=== PATIENT | male | born 1990 | race American Indian/Alaskan Native ===

== ENCOUNTER 2025-01-26 02:09 | Emergency (ER) | payer MEDICAID, OTHER ==
[2025-01-26] MEDS: Ketorolac 30 MG/ML SDV IVPUSH ONE (03:08)
[2025-01-26] MEDS: diphenhydrAMINE 50 MG/ML SDV IVPUSH ONE (03:08)
== END 2025-01-26 04:02 | disposition home or self-care (01) ==
LOC: DL.ED 02:09
DX: G43.C0 Periodic headache syndromes in child or adult, not intractable (principal)
CPT/HCPCS: 96374; 96375; 99283; J1200; J1885; J2765

== ENCOUNTER 2025-01-26 09:01 | Emergency (ER) | payer OTHER ==
[2025-01-26] MEDS ORDERED: Sodium Chloride 0.9% 10 ML Syringe FLUSH PRN (09:11)
[2025-01-26] MEDS: Ketorolac 30 MG/ML SDV IVPUSH ONE (09:27)
[2025-01-26] MEDS: Dexamethasone 4 MG/ML SDV IVPUSH ONE (09:28)
== END 2025-01-26 10:20 | disposition home or self-care (01) ==
LOC: DL.ED 09:01
DX: G44.209 Tension-type headache, unspecified, not intractable (principal); G43.909 Migraine, unspecified, not intractable, without status migrainosus
CPT/HCPCS: 96374; 96375; 99283; 99283-25; J1100; J1885; J2765; J3360

== ENCOUNTER 2025-01-26 19:50 | Emergency (ER) | payer OTHER ==
[2025-01-26] MEDS: Ondansetron 4 MG/2 ML SDV IVPUSH ONE (20:12)
[2025-01-26 22:18] LABS: BASOPHILS PERCENT AUTO 0.3 % (0.0-1.0); EOSINOPHILS PERCENT AUTO 0.0 % (1.0-3.0); LYMPHOCYTES PERCENT AUTO 14.9 % (20.5-50.1); MONOCYTES PERCENT AUTO 4.5 % (2-8); NEUTROPHILS PERCENT AUTO 80.3 % (42.2-75.2); PLATELET COUNT,PLT 329 10^3/uL (150-450); RED BLOOD CELL COUNT 5.74 10^6/uL (4.6-6.2); WHITE BLOOD CELL COUNT,WBC 17.2 10^3/uL (5.0-10.0)
[2025-01-26] MEDS: diphenhydrAMINE 50 MG/ML SDV IVPUSH ONE (22:23)
[2025-01-26] MEDS: Ketorolac 30 MG/ML SDV IVPUSH ONE (22:27)
[2025-01-26 22:38] LABS: INR 0.9 (0.9-1.2); PTT,PARTIAL THROMBOPLSTIN TIME 24.1 SEC (22.0-34.0)
[2025-01-26 22:41] LABS: A/G RATIO 1.0; ALANINE AMINOTRANSFERASE,ALT 33 U/L (16-63); ASPARTATE AMNIOTRANSFERASE,AST 13 U/L (15-37); BILIRUBIN TOTAL 0.4 mg/dL (0.2-1.0); BLOOD UREA NITROGEN,BUN 11 mg/dL (7-18); CARBON DIOXIDE,CO2 24 mmol/L (21-32); CHLORIDE,CL 107 mmol/L (98-107); CREATININE 1.15 mg/dL (0.70-1.30); ESTIMATED GFR 86 mL/min (>=60); GLUCOSE RANDOM 110 mg/dL (70-99); POTASSIUM,K 4.3 mmol/L (3.5-5.1); PROTEIN TOTAL,TP 7.8 g/dL (6.4-8.2); SODIUM,NA 141 mmol/L (136-145)
[2025-01-26 22:42] LABS: ETHANOL BLOOD MEDICAL < 3 mg/dL (0)
[2025-01-26 22:44] LABS: LACTIC ACID 1.2 mmol/L (0.4-2.0)
[2025-01-27 00:03] LABS: APPEARANCE,URINE CLEAR (CLEAR); GLUCOSE,URINE NEGATIVE (NEGATIVE); OCCULT BLOOD,URINE TRACE-INTACT (NEGATIVE)
[2025-01-27 00:07] LABS: AMPHETAMINES,URINE NEGATIVE (NEGATIVE); BARBITURATES,URINE NEGATIVE (NEGATIVE); MDMA (ECSTASY), URINE NEGATIVE (NEGATIVE); METHAMPHETAMINES,URINE NEGATIVE (NEGATIVE); OPIATES,URINE NEGATIVE (NEGATIVE); OXYCODONE,URINE NEGATIVE (NEGATIVE); PHENCYCLIDINE,URINE NEGATIVE (NEGATIVE); TCA,URINE NEGATIVE (NEGATIVE)
[2025-01-30 16:42] LABS: WEST NILE AB, SERUM 0.01 IV (<=0.89)
== END 2025-01-27 00:18 | disposition home or self-care (01) ==
LOC: DL.ED 19:50
DX: G43.C0 Periodic headache syndromes in child or adult, not intractable (principal); F17.200 Nicotine dependence, unspecified, uncomplicated
CPT/HCPCS: 36415; 70450; 80053; 80305; 80307; 81001; 83605; 84145; 85025; 85610; 85651; 85730; 86140; 86788; 87428; 96374; 96375; 99283; 99284; J1171; J1200; J1885; J2003; J2405; J2765; J3360; J7030; 81003

== ENCOUNTER 2025-01-27 11:20 | Emergency (ER) | payer OTHER ==
[2025-01-27] MEDS ORDERED: Sodium Chloride 0.9% 10 ML Syringe FLUSH PRN (11:38)
[2025-01-27 11:48] LABS: BASOPHILS PERCENT AUTO 0.4 % (0.0-1.0); EOSINOPHILS PERCENT AUTO 0.5 % (1.0-3.0); LYMPHOCYTES PERCENT AUTO 43.5 % (20.5-50.1); MONOCYTES PERCENT AUTO 7.7 % (2-8); NEUTROPHILS PERCENT AUTO 47.9 % (42.2-75.2); PLATELET COUNT,PLT 348 10^3/uL (150-450); RED BLOOD CELL COUNT 5.97 10^6/uL (4.6-6.2); WHITE BLOOD CELL COUNT,WBC 14.5 10^3/uL (5.0-10.0)
[2025-01-27] MEDS: Dexamethasone 4 MG/ML SDV IVPUSH ONE (11:59)
[2025-01-27 12:03] LABS: MONONUCLEOSIS SCREEN NEGATIVE
[2025-01-27] MEDS: diphenhydrAMINE 50 MG/ML SDV IVPUSH ONE (12:04)
[2025-01-27 12:12] LABS: LACTIC ACID 1.9 mmol/L (0.4-2.0)
[2025-01-27 12:17] LABS: TSH ULTRASENSITIVE 4.92 uIU/mL (0.36-3.74)
== END 2025-01-27 12:58 ==
LOC: DL.ED 11:20
DX: R51.9 Headache, unspecified (principal)
CPT/HCPCS: 36415; 83605; 84443; 85025; 86140; 86308; 87040; 96374; 96375; 99284; J1100; J1200; J3360; J7030

== ENCOUNTER 2025-02-01 14:13 | Emergency (ER) | payer OTHER ==
[2025-02-01] MEDS: diphenhydrAMINE 50 MG/ML SDV IM ONE (14:28)
[2025-02-01] MEDS: Ketorolac 30 MG/ML SDV IM ONE (14:28)
[2025-02-01] MEDS: Promethazine 25 MG/ML SDV IM ONE (14:28)
== END 2025-02-01 15:06 | disposition home or self-care (01) ==
LOC: DL.ED 14:13
DX: G43.C0 Periodic headache syndromes in child or adult, not intractable (principal); G44.209 Tension-type headache, unspecified, not intractable
CPT/HCPCS: 96372; 99283; J1200; J1885; J2550